=== PATIENT | male | born 1950 | race Caucasian/White ===

== ENCOUNTER 2021-12-11 13:00 | Outpatient (RCR) | payer MEDICARE, BC, SELFPAY | END 2021-12-16 23:59 | disposition home or self-care (01) | LOC: CR 13:00 | PROVIDERS: PCP Internal Medicine; Visit Provider Family Medicine | DX: Z51.89 Encounter for other specified aftercare (principal); Z95.5 Presence of coronary angioplasty implant and graft | CPT/HCPCS: S9472 ==

== ENCOUNTER 2021-12-13 12:03 | Emergency (ER) | payer MEDICARE, BC, SELFPAY ==
[2021-12-13 12:09] VITALS: BP 163/89; PULSE 62; RESP 14; TEMP 36.4; O2SAT 98
--- NOTE | 2021-12-13 13:21 | DI.CT_ITS ---
Exam(s) CT HEAD CERVICAL SPINE WO EXAM: CT HEAD CERVICAL SPINE WO CLINICAL HISTORY: fall, HI anc c3-4 pain. TECHNIQUE: Imaging Protocol: Axial computed tomography images with coronal and sagittal reformatted images were created and reviewed COMPARISON: No exams were available for comparison FINDINGS: BRAIN: There are no skull fractures nor fluid in the visualized paranasal sinuses. There is no evidence of intracranial hemorrhage, mass effect, or shift of midline structures. There are no extra-axial fluid collections. The ventricles are not enlarged or shifted and there is no blo od within the ventricular system nor within the basal cisterns. CERVICAL SPINE: There is no evidence of fracture. There is mild degenerative anterolisthesis of C3 upon C4. Facet joints at C2-3 level are fused developmentally. Other facet joints below this level exhibit mu ltilevel degenerative changes but no malalignment No significant osseous lesions evident. IMPRESSION: No acute intracranial findings on this noninfused CT scan of the brain. No evidence of cervical spine fracture, malalignment, nor acute compromise of the cervical spinal can al. RADIATION DOSE DELIVERED: 1,386.96mGy.cm Total DLP DATA REPOSITORY: All CT scans at this facility are submitted to the National Radiology Data Registry (NRDR) Dose Index Registry (DIR) with the [employer] ([employer]). RADIATION OPTIMIZATION: All CT scans at this facility use at least one of these dose optimization te chniques: automated exposure control; mA and/or kV adjustment per patient size (includes targeted exa ms where dose is matched to clinical indication); or iterative reconstruction.
[2021-12-13 13:37] VITALS: BP 161/84; PULSE 62; RESP 18; TEMP 36.8; O2SAT 95
--- NOTE | 2021-12-13 14:29 | ED.GENADUL_ITS ---
Discharge Plan Disposition Patient Disposition: HOME Condition: Stable Discharge Details Clinical Impression: Head injury Primary Care Provider: Danni Harmon ED Provider: Cate Moser Home Meds and New Rx's Prescriptions: Continued atorvastatin 40 mg tablet 40 mg PO DAILY 0RF donepezil 10 mg tablet 10 mg PO DAILY 0RF Label Comments: take 1 tablet by mouth every morning clopidogrel 75 mg tablet 75 mg PO DAILY 0RF acyclovir 400 mg tablet 400 mg PO DAILY 0RF Label Comments: Take 1 tablet(s) every day by oral route for 90 days. aspirin 81 mg Tablet 81 mg PO DAILY 0RF escitalopram oxalate 5 mg tablet 5 mg PO DAILY 0RF Label Comments: take 1 tablet by mouth once daily cholecalciferol (vitamin D3) [Vitamin D3] 50 mcg (2,000 unit) capsule 50 mcg PO DAILY 0RF Discharge Instructions Instructions: Head Injury (ED) Additional Instructions: You have a small abrasion on the back of your head, keep this clean and dry Your head CT does not show abnormality Please return immediately should you have vomiting, worsening headache, or with any new or progressive symptoms You may apply ice to the affected area Discharge Data Discharge Date/Time-TO BE ENTERED AT DEPARTURE: 12/13/21 15:06 Medical Decision Making This 71-year-old gentleman has a CTA head and cervical spine that did not show acute abnormality He is alert and oriented and of decisional capacity, ambulatory with steady gait His tetanus is reportedly up-to-date Given the threshold to return should you have new or worsening complaints and discharged home in stable condition with stable vital Medical Records Medical records reviewed: Yes I reviewed the patient's medical records. HPI General Date/Time Provider Initiated Documentation: 12/13/21 12:30 . HPI Narrative: This 71-year-old gentleman presents status post fall on ice, hitting his head just prior to arrival. Denies loss of consciousness. Does take a baby aspirin daily. Denies any chest pain, shortness of breath, dizziness. Has been ambulatory since the event occurred. Was concerned as he take Plavix daily. Denies any additional injuries. Denies any vision change. Denies any neck pain. Related Data Home Medications Medication Instructions Recorded Confirmed acyclovir 400 mg tablet 400 mg PO DAILY 12/13/21 12/13/21 aspirin 81 mg tablet 81 mg PO DAILY 12/13/21 12/13/21 atorvastatin 40 mg tablet 40 mg PO DAILY 12/13/21 12/13/21 cholecalciferol (vitamin D3) 50 50 mcg PO DAILY 12/13/21 12/13/21 mcg (2,000 unit) capsule (Vitamin D3) clopidogrel 75 mg tablet 75 mg PO DAILY 12/13/21 12/13/21 donepezil 10 mg tablet 10 mg PO DAILY 12/13/21 12/13/21 escitalopram oxalate 5 mg tablet 5 mg PO DAILY 12/13/21 12/13/21 Allergies Allergy/AdvReac Type Severity Reaction Status Date / Time bupropion [From Wellbutrin] AdvReac Other (See Unverified 12/13/21 12:14 Comment) Sulfa (Sulfonamide AdvReac Unverified 12/13/21 12:14 Antibiotics) General Stated Complaint: HeadInjury TRACY: 3 Review of Systems All systems reviewed & are unremarkable except as noted in HPI and below PFSH All Active Problems (Updated 12/13/21 @ 14:40 by MIKE Smith) Head injury (Acute) Social History Smoking/Tobacco Use Status: Never Smoking risk assessment performed?: Yes Alcohol Intake: current Alcohol Intake frequency: holidays/special occasions only Drug use: Never Substance use type: does not use Do you feel safe at home: Yes Exam Const General: cooperative, comfortable and no acute distress Orientation: alert and oriented x3 Limitations: altered mental status Other: GCS 15, ambulatory with steady gait HENMT Other: 1 inch hematoma with abrasion noted to occipital region Eyes Pupils: PERRL EOM: EOM intact bilaterally Neck Other: Mild paraspinal tenderness, no midline tenderness Chest Chest: normal inspection of the chest Resp Effort & Inspection: normal respiratory effort Cardio Rate: regular rate Rhythm: regular rhythm GI Inspection: normal to inspection Other: No abdominal tenderness Back/Spine/Pelvis Other: No thoracic or lumbar spine tenderness Skin Other: Abrasion with hematoma to occipital region Extrem Other: No visible sign of trauma Course Vital Signs Vital signs: Vital Signs Temperature 36.4 C L 12/13/21 12:09 Pulse 62 12/13/21 12:09 Respiratory Rate 14 12/13/21 12:09 Blood Pressure 163/89 H 12/13/21 12:09 Pulse Oximetry 98 12/13/21 12:09 Temperature 36.8 C 12/13/21 13:37 Temperature Source Skin 12/13/21 13:37 Pulse 62 12/13/21 13:37 Respiratory Rate 18 12/13/21 13:37 Respiratory Effort Non-Labored 12/13/21 12:18 Respiratory Depth Normal 12/13/21 12:18 Respiratory Pattern Normal 12/13/21 12:18 Blood Pressure 161/84 H 12/13/21 13:37 Blood Pressure Position Sitting 12/13/21 12:09 Pulse Oximetry 95 12/13/21 13:37 Oxygen Delivery Method Room Air 12/13/21 13:37 Oxygen Flow Rate 0 12/13/21 13:37 Pain Level 0 12/13/21 13:37 PAWSS Have you Been Recently Intoxicated or Drunk Within the Last 30 days?: No Have you Ever Experienced Previous Episodes of Alcohol Withdrawal?: No Have you ever Experienced Withdrawal Seizures?: No Have you ever Experienced Delirium Tremens(DT)s?: No Have you ever undergone Alcohol Rehabilitation Treatment (i.e, inpt ot outpatient treatment programs)?: No Have you ever Experienced Blackouts?: No Have you ever Combined Alcohol with other Downers within the last 90 days?: No Have you ever Combined Alcohol with any other Substance of Abuse during the last 90 days?: No Positive Blood Alcohol level on Presentation? [PCS.BAL]: No Evidence of Increased Autonomic Activity (i.e. HR>120, tremor, sweating, agitation, nausea)?: No Result: 0
[2021-12-13 14:59] VITALS: BP 147/78; PULSE 69; RESP 14; TEMP 36.6; O2SAT 94
== END 2021-12-13 15:06 | disposition home or self-care (01) ==
PROVIDERS: Emergency Provider Physician Assistant; PCP Internal Medicine
DX: S09.8XXA Other specified injuries of head, initial encounter (principal); W00.0XXA Fall on same level due to ice and snow, initial encounter
CPT/HCPCS: 99284; 70450; 72125; 99283

== ENCOUNTER 2022-01-15 13:00 | Outpatient (RCR) | payer MEDICARE, BC, SELFPAY | END 2022-01-16 23:59 | disposition home or self-care (01) | LOC: CR 13:00 | PROVIDERS: PCP Internal Medicine; Visit Provider Family Medicine | DX: Z51.89 Encounter for other specified aftercare (principal); Z95.5 Presence of coronary angioplasty implant and graft | CPT/HCPCS: S9472 ==

== ENCOUNTER 2022-02-10 13:00 | Outpatient (RCR) | payer MEDICARE, BC, SELFPAY | END 2022-02-15 23:59 | disposition home or self-care (01) | LOC: CR 13:00 | PROVIDERS: PCP Internal Medicine; Visit Provider Internal Medicine Cardiovascular Disease | DX: Z51.89 Encounter for other specified aftercare (principal); Z95.5 Presence of coronary angioplasty implant and graft | CPT/HCPCS: S9472 ==

== ENCOUNTER 2022-03-14 13:00 | Outpatient (RCR) | payer MEDICARE, BC, SELFPAY | END 2022-03-18 23:59 | disposition home or self-care (01) | LOC: CR 13:00 | PROVIDERS: PCP Internal Medicine; Visit Provider Internal Medicine Cardiovascular Disease | DX: Z51.89 Encounter for other specified aftercare (principal); Z95.5 Presence of coronary angioplasty implant and graft | CPT/HCPCS: S9472 ==

== ENCOUNTER 2022-03-24 13:00 | Outpatient (RCR) | payer MEDICARE, BC, SELFPAY | END 2022-04-17 23:59 | disposition home or self-care (01) | LOC: CR 13:00 | PROVIDERS: PCP Internal Medicine; Visit Provider Internal Medicine Cardiovascular Disease | DX: Z51.89 Encounter for other specified aftercare (principal); Z95.5 Presence of coronary angioplasty implant and graft | CPT/HCPCS: S9472 ==

== ENCOUNTER 2022-05-15 13:00 | Outpatient (RCR) | payer SELFPAY ==
[2022-04-24 15:31] VITALS: BP 109/68; PULSE 90
[2022-04-29 12:56] VITALS: BP 107/73; PULSE 78
[2022-05-01 14:30] VITALS: BP 119/74; PULSE 72
[2022-05-13 13:47] VITALS: BP 118/67; PULSE 87
[2022-05-15 12:54] VITALS: BP 129/77; PULSE 79; O2SAT 94
== END 2022-05-18 23:59 | disposition home or self-care (01) ==
LOC: CR 13:00
PROVIDERS: PCP Internal Medicine; Visit Provider Internal Medicine Cardiovascular Disease
DX: R69 Illness, unspecified (principal)

== ENCOUNTER 2022-06-12 12:57 | Outpatient (RCR) | payer SELFPAY ==
[2022-05-19 00:03] VITALS: BP 129/77; PULSE 79
[2022-05-20 13:29] VITALS: BP 111/74; PULSE 79
[2022-05-27 13:59] VITALS: BP 112/70; PULSE 82
[2022-05-29 13:13] VITALS: BP 112/70; PULSE 87
[2022-06-03 13:04] VITALS: BP 136/90; PULSE 85
[2022-06-10 12:56] VITALS: BP 118/71; PULSE 74
[2022-06-12 12:59] VITALS: BP 127/73; PULSE 74
== END 2022-06-18 23:59 | disposition home or self-care (01) ==
LOC: CR 12:57
PROVIDERS: PCP Internal Medicine; Visit Provider Internal Medicine Cardiovascular Disease
DX: R69 Illness, unspecified (principal)

== ENCOUNTER 2022-07-17 12:56 | Outpatient (RCR) | payer SELFPAY ==
[2022-06-19 00:14] VITALS: BP 127/73; PULSE 74
[2022-06-26 13:03] VITALS: BP 120/77; PULSE 80; O2SAT 93
[2022-07-03 12:57] VITALS: BP 146/74; PULSE 78
[2022-07-08 13:00] VITALS: BP 122/72; PULSE 70
[2022-07-10 12:57] VITALS: BP 134/81; PULSE 63
[2022-07-17 12:57] VITALS: BP 138/66; PULSE 67
== END 2022-07-18 23:59 | disposition home or self-care (01) ==
LOC: CR 12:56
PROVIDERS: PCP Internal Medicine; Visit Provider Internal Medicine Cardiovascular Disease
DX: R69 Illness, unspecified (principal)

== ENCOUNTER 2022-09-16 13:02 | Outpatient (RCR) | payer SELFPAY ==
[2022-07-19 00:21] VITALS: BP 138/66; PULSE 67
[2022-08-19 13:33] VITALS: BP 119/74; PULSE 73
[2022-08-28 12:57] VITALS: BP 119/77; PULSE 83
[2022-09-02 13:06] VITALS: BP 114/73; PULSE 78
[2022-09-09 13:14] VITALS: BP 136/75; PULSE 75
[2022-09-16 13:11] VITALS: BP 128/76; PULSE 66
== END 2022-09-17 23:59 | disposition home or self-care (01) ==
LOC: CR 13:02
PROVIDERS: PCP Internal Medicine; Visit Provider Internal Medicine Cardiovascular Disease
DX: R69 Illness, unspecified (principal)

== ENCOUNTER 2022-10-14 13:03 | Outpatient (RCR) | payer SELFPAY ==
[2022-09-18 00:13] VITALS: BP 128/76; PULSE 66
[2022-09-30 13:01] VITALS: BP 133/74; PULSE 59
[2022-10-02 12:53] VITALS: BP 121/67; PULSE 70
[2022-10-07 13:11] VITALS: BP 132/76; PULSE 72
[2022-10-14 13:03] VITALS: BP 131/82; PULSE 64
== END 2022-10-18 23:59 | disposition home or self-care (01) ==
LOC: CR 13:03
PROVIDERS: PCP Internal Medicine; Visit Provider Internal Medicine Cardiovascular Disease
DX: R69 Illness, unspecified (principal)

== ENCOUNTER 2022-11-13 13:37 | Outpatient (RCR) | payer SELFPAY ==
[2022-10-19 00:07] VITALS: BP 131/82; PULSE 64
[2022-10-21 14:58] VITALS: BP 134/76; PULSE 61
[2022-10-23 13:00] VITALS: BP 123/73; PULSE 66
[2022-10-30 14:10] VITALS: BP 141/80; PULSE 64
[2022-11-04 13:00] VITALS: BP 127/75; PULSE 69
[2022-11-06 12:56] VITALS: BP 126/70; PULSE 72
[2022-11-13 13:00] VITALS: BP 125/69; PULSE 72
== END 2022-11-18 23:59 | disposition home or self-care (01) ==
LOC: CR 13:37
PROVIDERS: PCP Internal Medicine; Visit Provider Internal Medicine Cardiovascular Disease
DX: R69 Illness, unspecified (principal)

== ENCOUNTER 2023-01-15 13:00 | Outpatient (RCR) | payer SELFPAY ==
[2022-12-17 00:10] VITALS: BP 115/70; PULSE 67
[2022-12-18 13:16] VITALS: BP 125/71; PULSE 80
[2022-12-23 13:08] VITALS: BP 124/69; PULSE 71
[2022-12-25 13:11] VITALS: BP 135/75; PULSE 68
[2022-12-30 13:08] VITALS: BP 122/74; PULSE 76
[2023-01-01 12:57] VITALS: BP 129/75; PULSE 68
[2023-01-06 13:03] VITALS: BP 134/73; PULSE 63
[2023-01-08 13:07] VITALS: BP 127/73; PULSE 64
[2023-01-15 13:08] VITALS: BP 123/74; PULSE 62
== END 2023-01-16 23:59 | disposition home or self-care (01) ==
LOC: CR 13:00
PROVIDERS: PCP Internal Medicine; Visit Provider Internal Medicine Cardiovascular Disease

== ENCOUNTER 2023-02-12 13:13 | Outpatient (RCR) | payer SELFPAY ==
[2023-01-17 00:06] VITALS: BP 123/74; PULSE 62
[2023-01-22 13:11] VITALS: BP 120/67; PULSE 74
[2023-01-29 13:01] VITALS: BP 125/71; PULSE 72
[2023-02-03 13:07] VITALS: BP 117/71; PULSE 68
[2023-02-12 13:19] VITALS: BP 133/69; PULSE 70
== END 2023-02-15 23:59 | disposition home or self-care (01) ==
LOC: CR 13:13
PROVIDERS: PCP Internal Medicine; Visit Provider Internal Medicine Cardiovascular Disease
DX: R69 Illness, unspecified (principal)

== ENCOUNTER 2023-03-05 13:07 | Outpatient (RCR) | payer SELFPAY ==
[2023-02-16 00:15] VITALS: BP 133/69; PULSE 70
[2023-02-17 13:23] VITALS: BP 118/79; PULSE 61
[2023-02-24 13:11] VITALS: BP 119/64; PULSE 72
[2023-03-03 13:54] VITALS: BP 119/73; PULSE 72
[2023-03-05 13:09] VITALS: BP 117/73; PULSE 69
== END 2023-03-18 23:59 | disposition home or self-care (01) ==
LOC: CR 13:07
PROVIDERS: PCP Internal Medicine; Visit Provider Internal Medicine Cardiovascular Disease

== ENCOUNTER 2023-04-16 13:07 | Outpatient (RCR) | payer SELFPAY ==
[2023-03-19 00:16] VITALS: BP 117/73; PULSE 69
[2023-04-07 13:02] VITALS: BP 124/80; PULSE 78
[2023-04-09 13:01] VITALS: BP 113/67; PULSE 84
[2023-04-16 13:09] VITALS: BP 117/72; PULSE 81
== END 2023-04-17 23:59 | disposition home or self-care (01) ==
LOC: CR 13:07
PROVIDERS: PCP Internal Medicine; Visit Provider Internal Medicine Cardiovascular Disease
DX: R69 Illness, unspecified (principal)

== ENCOUNTER 2023-05-12 13:01 | Outpatient (RCR) | payer SELFPAY ==
[2023-04-18 00:07] VITALS: BP 117/72; PULSE 81
[2023-05-07 13:26] VITALS: BP 121/76; PULSE 68
[2023-05-12 13:16] VITALS: BP 117/76; PULSE 80
== END 2023-05-18 23:59 | disposition home or self-care (01) ==
LOC: CR 13:01
PROVIDERS: PCP Internal Medicine; Visit Provider Internal Medicine Cardiovascular Disease
DX: R69 Illness, unspecified (principal)

== ENCOUNTER 2023-06-18 13:06 | Outpatient (RCR) | payer SELFPAY ==
[2023-05-19 00:04] VITALS: BP 117/76; PULSE 80
[2023-05-19 13:27] VITALS: BP 137/79; PULSE 65
[2023-05-28 13:19] VITALS: BP 114/66; PULSE 76
[2023-06-02 13:44] VITALS: BP 143/59; PULSE 76
[2023-06-16 13:19] VITALS: BP 134/64; PULSE 70
[2023-06-18 13:14] VITALS: BP 110/72; PULSE 70
== END 2023-06-18 23:59 | disposition home or self-care (01) ==
LOC: CR 13:06
PROVIDERS: PCP Internal Medicine; Visit Provider Internal Medicine Cardiovascular Disease
DX: R69 Illness, unspecified (principal)

== ENCOUNTER 2023-07-14 13:21 | Outpatient (RCR) | payer SELFPAY ==
[2023-06-19 00:14] VITALS: BP 110/72; PULSE 70
[2023-07-02 13:11] VITALS: BP 128/77; PULSE 65
[2023-07-07 13:15] VITALS: BP 140/75; PULSE 71
[2023-07-09 13:37] VITALS: BP 142/74; PULSE 71
[2023-07-14 13:39] VITALS: BP 104/66; PULSE 73
== END 2023-07-18 23:59 | disposition home or self-care (01) ==
LOC: CR 13:21
PROVIDERS: PCP Internal Medicine; Visit Provider Internal Medicine Cardiovascular Disease
DX: R69 Illness, unspecified (principal)

== ENCOUNTER 2023-09-08 12:55 | Outpatient (RCR) | payer SELFPAY ==
[2023-08-27 12:58] VITALS: BP 131/75; PULSE 75
[2023-09-01 12:57] VITALS: BP 132/79; PULSE 70
[2023-09-08 13:15] VITALS: BP 140/78; PULSE 66
== END 2023-09-17 23:59 | disposition home or self-care (01) ==
LOC: CR 12:55
PROVIDERS: PCP Internal Medicine; Visit Provider Internal Medicine Cardiovascular Disease
DX: R69 Illness, unspecified (principal)

== ENCOUNTER 2023-10-08 12:48 | Outpatient (RCR) | payer SELFPAY ==
[2023-09-18 00:13] VITALS: BP 140/78; PULSE 66
[2023-09-24 15:43] VITALS: BP 132/74; PULSE 73
[2023-09-29 14:47] VITALS: BP 141/79; PULSE 86
[2023-10-06 13:07] VITALS: BP 119/71; PULSE 79
[2023-10-08 12:56] VITALS: BP 112/68; PULSE 67
== END 2023-10-18 23:59 | disposition home or self-care (01) ==
LOC: CR 12:48
PROVIDERS: PCP Internal Medicine; Visit Provider Internal Medicine Cardiovascular Disease
DX: R69 Illness, unspecified (principal)

== ENCOUNTER 2023-11-12 13:14 | Outpatient (RCR) | payer SELFPAY ==
[2023-10-19 00:06] VITALS: BP 140/78; PULSE 66
[2023-10-22 12:58] VITALS: BP 115/65; PULSE 74
[2023-10-27 14:20] VITALS: BP 128/78; PULSE 72
[2023-10-29 13:11] VITALS: BP 127/72; PULSE 74
[2023-11-03 13:12] VITALS: BP 118/69; PULSE 74
[2023-11-10 13:06] VITALS: BP 121/73; PULSE 74
[2023-11-12 13:18] VITALS: BP 131/71; PULSE 78
== END 2023-11-18 23:59 | disposition home or self-care (01) ==
LOC: CR 13:14
PROVIDERS: PCP Internal Medicine; Visit Provider Internal Medicine Interventional Cardiology
DX: R69 Illness, unspecified (principal)

== ENCOUNTER 2023-12-03 13:57 | Outpatient (RCR) | payer SELFPAY ==
[2023-11-19 00:05] VITALS: BP 140/78; PULSE 66
[2023-11-24 13:56] VITALS: BP 116/70; PULSE 72
[2023-11-26 13:27] VITALS: BP 125/70; PULSE 74
[2023-12-01 13:36] VITALS: BP 117/73; PULSE 74
[2023-12-03 15:25] VITALS: BP 115/70; PULSE 81
== END 2023-12-17 23:59 | disposition home or self-care (01) ==
LOC: CR 13:57
PROVIDERS: PCP Internal Medicine; Visit Provider Internal Medicine Cardiovascular Disease
DX: R69 Illness, unspecified (principal)

== ENCOUNTER 2024-02-16 13:23 | Outpatient (RCR) | payer SELFPAY ==
[2024-01-19 14:12] VITALS: BP 111/74; PULSE 82
[2024-01-26 13:21] VITALS: BP 124/72; PULSE 81
[2024-01-28 12:53] VITALS: BP 121/73; PULSE 77
[2024-02-02 13:48] VITALS: BP 101/63; PULSE 84
[2024-02-04 12:53] VITALS: BP 122/75; PULSE 87
[2024-02-09 13:08] VITALS: BP 111/63; PULSE 83
[2024-02-11 13:10] VITALS: BP 116/69; PULSE 70
[2024-02-16 13:46] VITALS: BP 123/74; PULSE 78
== END 2024-02-16 23:59 | disposition home or self-care (01) ==
LOC: CR 13:23
PROVIDERS: PCP Internal Medicine; Visit Provider Internal Medicine Cardiovascular Disease
DX: R69 Illness, unspecified (principal)

== ENCOUNTER 2024-03-17 13:13 | Outpatient (RCR) | payer SELFPAY ==
[2024-02-17 00:14] VITALS: BP 123/74; PULSE 78
[2024-02-18 13:08] VITALS: BP 112/61; PULSE 76; O2SAT 93
[2024-02-25 14:34] VITALS: BP 124/72; PULSE 74
[2024-03-01 13:09] VITALS: BP 114/72; PULSE 81
[2024-03-03 13:34] VITALS: BP 111/67; PULSE 80
[2024-03-10 13:11] VITALS: BP 109/71; PULSE 76
[2024-03-10 14:35] VITALS: BP 109/71; PULSE 76
[2024-03-17 13:16] VITALS: BP 118/70; PULSE 77
== END 2024-03-18 23:59 | disposition home or self-care (01) ==
LOC: CR 13:13
PROVIDERS: PCP Internal Medicine; Visit Provider Internal Medicine Cardiovascular Disease
DX: R69 Illness, unspecified (principal)

== ENCOUNTER 2024-04-12 13:33 | Outpatient (RCR) | payer SELFPAY ==
[2024-03-22 13:06] VITALS: BP 112/67; PULSE 76
[2024-03-24 14:22] VITALS: BP 109/66; PULSE 78
[2024-03-29 13:20] VITALS: BP 118/68; PULSE 74
--- OUTSIDE RECORDS SUMMARY | 2024-04-12 13:34 | XMS_ITS | Continuity of Care Document ---
Author Name Unknown Organization [facility] Address [address] [place] [address] Care Team Providers Care Expanded Function Dental Assistant Name Role Phone BOZENA ELISE Primary Care Physician Encounter LTTL_ID FIN NBR [id number] Date(s): 04/03/24 - 04/03/24 [facility] [address] [place], [place] [address] Encounter Diagnosis Gastroenteritis(Discharge Diagnosis) - 04/03/24 Discharge Disposition: Home or Self Care Attending Physician: Veto Rosenberg MD Admitting Physician: Veto Rosenberg MD Allergies, Adverse Reactions, Alerts Substance Reaction Severity Status sulfa drugs 1 Unknown Active 1Everything smells like sulfer Functional Status 04/03/24 Family Member Travel History No recent t ravel Recent Travel History No recent travel Other exposure to Infectious Disease Non e Medications ondansetron 4 mg oral tablet, disintegrating 4 mg = 1 tab, Oral, TID, # 10 tab, 0 Refill(s), 04/09/24 6:47:00 PM CDT, Pharmacy: [facility] #[id number], 167.64, cm, 04/03/24 15:48:00 EDT, Height, 81.65, kg, 04/03/24 15:52:00 EDT, Weight Dosing Start Date: 04/03/24 Stop Date: 04/09/24 Status: Ordered Mental Status 04/03/24 Eye Opening Response Rachel Spontaneous ly Best Verbal Response Lyburn Oriented Best Motor Response Rachel Obeys comman ds Lyburn Coma Score 15 Results Laboratory List Name Date Troponin-I High Sensitivity 04/03/24 Urinalysis with Micro if Indicated and C ulture if Indicated 04/03/24 Respiratory Panel 2.1 ([employer]) 04/03/24 .Morphology (LTTL) 04/03/24 CBC w/ Diff 04/03/24 Comprehensive Metabolic Panel (CMP) 04/03 Lipase Level 04/03/24 Sedimentation Rate (ESR) 04/03/24 Troponin-I High Sensitivity 04/03/24 Automated Diff 04/03/24 Most recent to oldest [Reference Range]: 1 2 WBC [4.8-10.8 K/mcL] 4.1 K/mcL *LOW* (04/03/24 4:11 PM) RBC [4.70-6.10 Million/mcL] 5.02 Million /mcL (04/03/24 4:11 PM) Neutro Auto [42.2-75.2 %] 73.8 % (04/03/24 4:11 PM) Lymph Auto [20.5-51.1 %] 15.5 % *LOW* (04/03/24 4:11 PM) [place] Auto [1.7-9.3 %] 9.7 % *HI* (04/03/24 4:11 PM) Basophil Auto [0.0-0.8 %] 0.9 % *HI* (04/03/24 4:11 PM) BUN [7-25 mg/dL] 24 mg/dL (04/03/24 4:11 PM) UA Color [Yellow] Yellow (04/03/24 5:45 PM) Glucose Level [70-109 mg/dL] 139 mg/dL *HI* (04/03/24 4:11 PM) Potassium Level [3.5-5.1 mmol/L] 4.1 mmo l/L 1 (04/03/24 4:11 PM) Baso Absolute [0.0-0.2 K/mcL] 0.0 K/mcL (04/03/24 4:11 PM) MCV [80.0-94.0 fL] 90.6 fL (04/03/24 4:11 PM) UA Urobilinogen [0.2] 0.2 (04/03/24 5:45 PM) RBC Morph [Normal] Normal (04/03/24 4:11 PM) UA Bili [Negative] Small *ABN* (04/03/24 5:45 PM) UA Ketones [Negative] 15 *ABN* (04/03/24 5:45 PM) AST [13-39 IntlUnit/L] 76 IntlUnit/L *HI* (04/03/24 4:11 PM) ALT [7-52 IntlUnit/L] 70 IntlUnit/L 2 *HI* (04/03/24 4:11 PM) MCHC [32.0-37.0 g/dL] 35.6 g/dL (04/03/24 4:11 PM) Osmolality [275-295 mOsm/kg] 265 mOsm/kg *LOW* (04/03/24 4:11 PM) Sodium Level [136-145 mmol/L] 129 mmol/L *LOW* (04/03/24 4:11 PM) UA Leuk Est [Negative] Negative (04/03/24 5:45 PM) Lymph Absolute [1.2-3.4 K/mcL] 0.6 K/mcL *LOW* (04/03/24 4:11 PM) UA Nitrite [Negative] Negative (04/03/24 5:45 PM) UA Glucose [Negative] Negative (04/03/24 5:45 PM) Hct [42.0-52.0 %] 45.5 % (04/03/24 4:11 PM) Lipase Level [11-82 unit/L] 20 unit/L 3 (04/03/24 4:11 PM) Calcium Level [8.6-10.3 mg/dL] 8.9 mg/dL (04/03/24 4:11 PM) [place] Absolute [0.1-0.6 K/mcL] 0.4 K/mcL (04/03/24 4:11 PM) Albumin Level [3.5-5.7 g/dL] 4.0 g/dL (04/03/24 4:11 PM) Protein Total [6.4-8.9 g/dL] 7.2 g/dL (04/03/24 4:11 PM) UA Protein [Negative] 30 *ABN* (04/03/24 5:45 PM) MCH [27.0-31.0 pg] 32.3 pg *HI* (04/03/24 4:11 PM) Neutro Absolute [1.4-6.5 K/mcL] 3.1 K/mc L (04/03/24 4:11 PM) Bilirubin Total [0.3-1.0 mg/dL] 1.1 mg/d L *HI* (04/03/24 4:11 PM) Hgb [14.0-18.0 g/dL] 16.2 g/dL (04/03/24 4:11 PM) Alk Phos [34-104 IntlUnit/L] 48 IntlUnit /L (04/03/24 4:11 PM) UA Blood [Negative] Negative (04/03/24 5:45 PM) MPV [7.4-10.4 fL] 7.4 fL (04/03/24 4:11 PM) UA Spec Grav [1.001-1.030] >=1.030 *NA* (04/03/24 5:45 PM) Platelets [130-400 K/mcL] 82 K/mcL *LOW* (04/03/24 4:11 PM) CO2 [21-31 mmol/L] 20 mmol/L *LOW* (04/03/24 4:11 PM) Eos Absolute [0.0-0.2 K/mcL] 0.0 K/mcL (04/03/24 4:11 PM) UA pH [5.00-9.00] 5.50 (04/03/24 5:45 PM) UA Appear [Clear] Clear (04/03/24 5:45 PM) Chloride Level [98-107 mmol/L] 96 mmol/L *LOW* (04/03/24 4:11 PM) RDW-CV [11.5-14.5 %] 13.8 % (04/03/24 4:11 PM) Adenovirus RespP-BFire [Not Detected] No t Detected (04/03/24 4:29 PM) Bordetella parapertussis Res pP-BFire [Not Detected] Not Detected (04/03/24 4:29 PM) Bordetella pertussis RespP-B Fire [Not Detected] Not Detected (04/03/24 4:29 PM) Chlamydophila pneumoniae Res pP-BFire [Not Detected] Not Detected (04/03/24 4:29 PM) Coronavirus 229E (Not COVID- 19) RP-BFire [Not Detected] Not Detected (04/03/24 4:29 PM) Coronavirus HKU1 (Not COVID- 19) RP-BFire [Not Detected] Not Detected (04/03/24 4:29 PM) Coronavirus NL63 (Not COVID- 19) RP-BFire [Not Detected] Not Detected (04/03/24 4:29 PM) Coronavirus OC43 (Not COVID- 19) RP-BFire [Not Detected] Not Detected (04/03/24 4:29 PM) Human Metapneumonovirus Resp P-BFire [Not Detected] Not Detected (04/03/24 4:29 PM) Human Rhinovirus/Enterovirus RespP-BFir [Not Detected] Not Detected (04/03/24 4:29 PM) Influenza A RespP-BFire [Not Detected] N ot Detected (04/03/24 4:29 PM) Influenza B RespP-BFire [Not Detected] N ot Detected (04/03/24 4:29 PM) Mycomplasma pneumoniae RespP -BFire [Not Detected] Not Detected (04/03/24 4:29 PM) Parainfluenza Virus 1 RespP- BFire [Not Detected] Not Detected (04/03/24 4:29 PM) Parainfluenza Virus 2 RespP- BFire [Not Detected] Not Detected (04/03/24 4:29 PM) Parainfluenza Virus 3 RespP- BFire [Not Detected] Not Detected (04/03/24 4:29 PM) Parainfluenza Virus 4 RespP- BFire [Not Detected] Not Detected (04/03/24 4:29 PM) Respiratory Syncytial Virus RespP-BFire [Not Detected] Not Detected (04/03/24 4:29 PM) A/G Ratio [1.0-2.5 g/dL] 1.3 g/dL (04/03/24 4:11 PM) BUN/Creat Ratio [8.0-20.0] 17.1 (04/03/24 4:11 PM) Globulin [2.3-3.5 g/dL] 3.2 g/dL (04/03/24 4:11 PM) Slide Review Morph Only (04/03/24 4:11 PM) Urine Srce Clean Catch (04/03/24 5:45 PM) Plt Large Few *ABN* (04/03/24 4:11 PM) Creatinine Level [0.70-1.30 mg/dL] 1.40 mg/dL *HI* (04/03/24 4:11 PM) SARS-CoV-2 (COVID-19) RP-BFire [Not Dete cted] Not Detected (04/03/24 4:29 PM) Plt Estimation Decreased *ABN* (04/03/24 4:11 PM) Employed in healthcare? Unknown *NA* (04/03/24 4:29 PM) Symptomatic as defined by CDC? Unknown *NA* (04/03/24 4:29 PM) Hospitalized due to COVID-19? Unknown *NA* (04/03/24 4:29 PM) In ICU? Unknown *NA* (04/03/24 4:29 PM) Group care resident? Unknown *NA* (04/03/24 4:29 PM) status? Unknown *NA* (04/03/24 4:29 PM) Troponin-I HS [<=20 ng/L] 10 ng/L 4 (04/03/24 6:22 PM) 10 ng/L 5 (04/03/24 4:11 PM) Anion Gap [3.0-12.0] 13.0 *HI* (04/03/24 4:11 PM) Eos, Auto [0.00-3.00 %] 0.10 % (04/03/24 4:11 PM) eGFR CKD-EPI [>=60 mL/min/1.73 m2] 53 mL /min/1.73 m2 *LOW* (04/03/24 4:11 PM) ESR, Westergren [0-15 mm/hr] 30 mm/hr *HI* (04/03/24 4:11 PM) 1Result Comment: SLIGHT HEMOLYSIS 2Result Comment: SLIGHT HEMOLYSIS 3Interpretive Data: H-zoukcj-e-benzoquinone imine (meabolite of Acetaminophen) will generate erroneously low lipase results in samples for patients that have taken toxic doses of acetaminophen. 4Interpretive Data: The Miller ACCESS high-sensitivity Troponin I (hsTNI) 99 percentile cutoffs forhealthy adults are 12 ng/L or less for females and 20 ng/L or less for males. SERIAL MEASUREMENT IS HIGHLY RECOMMENDED for the diagnosis or exclusion of Acute Coronary Syndromes(ACS). Please refer to the High-Sensitivity Troponin Algorithm 2022 for guidance. As with all markers of cardiac injury, elevations of hsTnI do not in and of themselves indicate thepresence of an ischemic mechanism. Many other disease states can be associated with elevations via mechanisms different from those that cause injury in patients with ACS. These include trauma (contusion, ablation, pacing); congestive heart failure; pulmonary embolism; kidney failure; and myocarditis. Clinical judgement is necessary to distinguish patients who have ischemic heart disease from those who do not. 5Interpretive Data: The Miller ACCESS high-sensitivity Troponin I (hsTNI) 99 percentile cutoffs forhealthy adults are 12 ng/L or less for females and 20 ng/L or less for males. SERIAL MEASUREMENT IS HIGHLY RECOMMENDED for the diagnosis or exclusion of Acute Coronary Syndromes(ACS). Please refer to the High-Sensitivity Troponin Algorithm 2022 for guidance. As with all markers of cardiac injury, elevations of hsTnI do not in and of themselves indicate thepresence of an ischemic mechanism. Many other disease states can be associated with elevations via mechanisms different from those that cause injury in patients with ACS. These include trauma (contusion, ablation, pacing); congestive heart failure; pulmonary embolism; kidney failure; and myocarditis. Clinical judgement is necessary to distinguish patients who have ischemic heart disease from those who do not. Radiology Reports * Exam Date Time Procedure Performing Provider Status 04/03/24 4:38 PM XR Chest 1 View Pham Madison; Magdy (V erified) Notes: (XR Chest 1 View) Reason For Exam: cough XR Chest 1 View PROCEDURE INFORMATION: Exam: XR Chest Exam date and time: 04/03/2024 4:31 PM Age: 73 years old Clinical indication: Cough TECHNIQUE: Imaging protocol: Radiologic exam of the chest. Views: 1 view. COMPARISON: No relevant prior studies available. FINDINGS: Lungs: Moderate interstitial prominence along the lung bronchovascular distribution could represent chronic bronchial inflammation. Moderate hyperexpansion suggests COPD or emphysema. No dense consolidation. Pleural spaces: Unremarkable. No pleural effusion. No pneumothorax. Heart/Mediastinum: Unremarkable. No cardiomegaly. Bones/joints: Unremarkable. IMPRESSION: Possible chronic bronchial inflammation. COPD or emphysema No consolidating pneumonia THIS DOCUMENT HAS BEEN ELECTRONICALLY SIGNED BY AUSTYN LOVE MD on 04/03/2024 06:04 PM Final Signed by: Austyn Love MD Signed (Electronic Signature): 04/03/2024 6:04 pm Vital Signs Most recent to oldest [Reference Range]: 1 2 3 Temperature Temporal Artery [36-38 Deg C] 36.9 Deg C (04/03/24 3:48 PM) Peripheral Pulse Rate [60-100 bpm] 70 bpm (04/03/24 8:00 PM) 73 bpm (04/03/24 6:45 PM) 76 bpm (04/03/24 6:30 PM) Respiratory Rate [12-24 br/min] 18 br/min (04/03/24 3:48 PM) Blood Pressure [90-140/60-90 mmHg] 113/51mmHg (04/03/24 8:00 PM) 112/72mmHg (04/03/24 5:45 PM) 112/72mmHg (04/03/24 5:30 PM) Mean Arterial Pressure, Cuff [65-140 mmHg] 72 mmHg (04/03/24 8:00 PM) 85 mmHg (04/03/24 5:45 PM) 85 mmHg (04/03/24 5:30 PM) Mean Arterial Pressure Cuff 84 mmHg (04/03/24 5:45 PM) 84 mmHg (04/03/24 5:30 PM) 86 mmHg (04/03/24 5:15 PM) Weight 81.65 kg (04/03/24 3:48 PM) Weight Dosing 81.650 kg (04/03/24 3:48 PM) Height 167.64 cm (04/03/24 3:48 PM) Body Mass Index 29.05 kg/m2 (04/03/24 3:48 PM) Social History Social History Type Response Tobacco Never tobacco user T obacco Use:. Sex Hospital Discharge Instructions Patient Education 04/03/2024 18:47:53 Nausea, Adult Nausea, Adult Nausea is the feeling of having an upset stomach or that you are about to vomit. Nausea on its own is not usually a serious concern, but it may be an early sign of a more serious medical problem. As nausea gets worse, it can lead to vomiting. If vomiting develops, or if you are not able to drink enough fluids, you are at risk of becoming dehydrated. Dehydration can make you tired and thirsty, cause you to have a dry mouth, and decrease how often you urinate. Older adults and people with other diseases or a weak disease-fighting system (immune system) are at higher risk for dehydration. The main goals of treating your nausea are: ??? To relieve your nausea. ??? To limit repeated nausea episodes. ??? To prevent vomiting and dehydration. Follow these instructions at home: Watch your symptoms for any changes. Tell your health care provider about them. Eating and drinking ??? Take an oral rehydration solution (ORS). This is a drink that is sold at pharmacies and retail stores. ??? Drink clear fluids slowly and in small amounts as you are able. Clear fluids include water, icechips, low-calorie sports drinks, and fruit juice that has water added (diluted fruit juice). ??? Eat bland, ojsg-dj-mfugyx foods in small amounts as you are able. These foods include bananas, applesauce, rice, lean meats, toast, and crackers. ??? Avoid drinking fluids that contain a lot of sugar or caffeine, such as energy drinks, sports drinks, and soda. ??? Avoid alcohol. ??? Avoid spicy or fatty foods. General instructions ??? Take lxyl-jpl-gypxzng and prescription medicines only as told by your health care provider. ??? Rest at home while you recover. ??? Drink enough fluid to keep your urine pale yellow. ??? Breathe slowly and deeply when you feel nauseous. ??? Avoid smelling things that have strong odors. ??? Wash your hands often using soap and water for at least 20 seconds. If soap and water are not available, use hand mineral engineer. ??? Make sure that everyone in your household washes their hands well and often. ??? Keep all follow-up visits. This is important. Contact a health care provider if: ??? Your nausea gets worse. ??? Your nausea does not go away after two days. ??? You vomit multiple times. ??? You cannot drink fluids without vomiting. ??? You have any of the following: ??? New symptoms. ??? A fever. ??? A headache. ??? Muscle cramps. ??? A rash. ??? Pain while urinating. ??? You feel light-headed or dizzy. Get help right away if: ??? You have pain in your chest, neck, arm, or jaw. ??? You feel extremely weak or you faint. ??? You have vomit that is bright red or looks like coffee grounds. ??? You have bloody or black stools (feces) or stools that look like tar. ??? You have a severe headache, a stiff neck, or both. ??? You have severe pain, cramping, or bloating in your abdomen. ??? You have difficulty breathing or are breathing very quickly. ??? Your heart is beating very quickly. ??? Your skin feels cold and clammy. ??? You feel confused. ??? You have signs of dehydration, such as: ??? Dark urine, very little urine, or no urine. ??? Cracked lips. ??? Dry mouth. ??? Sunken eyes. ??? Sleepiness. ??? Weakness. These symptoms may be an emergency. Get help right away. Call 911. ??? Do not wait to see if the symptoms will go away. ??? Do not drive yourself to the hospital. Summary ??? Nausea is the feeling that you have an upset stomach or that you are about to vomit. Nausea on its own is not usually a serious concern, but it may be an early sign of a more serious medical problem. ??? If vomiting develops, or if you are not able to drink enough fluids, you are at risk of becoming dehydrated. ??? Follow recommendations for eating and drinking and take xhae-bog-xkcmltz and prescription medicines only as told by your health care provider. ??? Contact a health care provider right away if your symptoms worsen or you have new symptoms. ??? Keep all follow-up visits. This is important. This information is not intended to replace advice given to you by your health care provider. Make sure you discuss any questions you have with your health care provider. Document Revised: 04/11/2022 Document Reviewed: 04/11/2022 [employer] Patient Education ?? 2022 [employer] Follow Up Care 04/03/2024 15:33:18 With:Follow-up with your primary care Address: When:1 week Comments:Follow-up with your primary care as needed, they will be able to reevaluate if necessaryReturn to ED if concerns Emergency department Discharge instructions * MIKE Gallego: PERFORM Event Display: ED Discharge Information Authored Date: [id number] MIREYA GILL :1950 Age:73 years Sex:Male Visit Date:04/03/2024 Primary Care Physician: BOZENA ELISE Discharge Instructions We would like to thank you for allowing us to assist you with your healthcare needs. The following includes patient education materials and information regarding your injury/illness. Diagnosis from Today's Visit Gastroenteritis Discharge Vitals Temperature??(Temporal Artery) 98.4 ??F (36.9 ??C) Heart Rate??(Peripheral) 73 Respiratory Rate?? 18 Blood Pressure?? 112/72?? SpO2?? 96% Height?? 66.00 in (167.64 cm) Weight?? 180.04 lb (81.65 kg) BMI?? 29.05 Allergies sulfa drugs What to Do Next Instructions from Your Care Team We have??given you antinausea medications fluids and have found no acute findings on your laboratory evaluation Your viral panel was negative Will be sent home with several??ondansetron tablets to take as needed and a prescription will be sent to your pharmacy Follow-up in the emergency department for any new or worsening conditions You Need to Schedule the Following Appointments Follow Up with??Follow-up with your primary care When:??Within 1 week Why: Follow-up with your primary care as needed, they will be able to reevaluate if necessary Return to ED if concerns You were treated today on an emergency basis; it may be eastman to contact your primary care provider to notify them of your visit today. You may have been referred to your regular doctor or a specialist, please follow up as instructed. If your condition worsens or you can't get in to see the doctor, contact the Emergency Department. Medications What How Much When Instructions Next Dose New ondansetron (ondansetron 4 mg oral tablet, disintegrating) 1 tab Oral (given by mouth) 3 times a day Pickup at [id number] Pharmacy Information [id number]: [address], [place] [phone] Education Materials Nausea, Adult Nausea is the feeling of having an upset stomach or that you are about to vomit. Nausea on its own is not usually a serious concern, but it may be an early sign of a more serious medical problem. As nausea gets worse, it can lead to vomiting. If vomiting develops, or if you are not able to drink enough fluids, you are at risk of becoming dehydrated. Dehydration can make you tired and thirsty, cause you to have a dry mouth, and decrease how often you urinate. Older adults and people with other diseases or a weak disease-fighting system (immune system) are at higher risk for dehydration. The main goals of treating your nausea are: ? To relieve your nausea. ? To limit repeated nausea episodes. ? To prevent vomiting and dehydration. Follow these instructions at home: Watch your symptoms for any changes. Tell your health care provider about them. Eating and drinking ? Take an oral rehydration solution (ORS). This is a drink that is sold at pharmacies and retail stores. ? Drink clear fluids slowly and in small amounts as you are able. Clear fluids include water, ice chips, low-calorie sports drinks, and fruit juice that has water added (diluted fruit juice). ? Eat bland, qifl-wo-qwfoow foods in small amounts as you are able. These foods include bananas, applesauce, rice, lean meats, toast, and crackers. ? Avoid drinking fluids that contain a lot of sugar or caffeine, such as energy drinks, sports drinks, and soda. ? Avoid alcohol. ? Avoid spicy or fatty foods. General instructions ? Take hihb-fmb-wwbwrxh and prescription medicines only as told by your health care provider. ? Rest at home while you recover. ? Drink enough fluid to keep your urine pale yellow. ? Breathe slowly and deeply when you feel nauseous. ? Avoid smelling things that have strong odors. ? Wash your hands often using soap and water for at least 20 seconds. If soap and water are not available, use hand mineral engineer. ? Make sure that everyone in your household washes their hands well and often. ? Keep all follow-up visits. This is important. Contact a health care provider if: ? Your nausea gets worse. ? Your nausea does not go away after two days. ? You vomit multiple times. ? You cannot drink fluids without vomiting. ? You have any of the following: ? New symptoms. ? A fever. ? A headache. ? Muscle cramps. ? A rash. ? Pain while urinating. ? You feel light-headed or dizzy. Get help right away if: ? You have pain in your chest, neck, arm, or jaw. ? You feel extremely weak or you faint. ? You have vomit that is bright red or looks like coffee grounds. ? You have bloody or black stools (feces) or stools that look like tar. ? You have a severe headache, a stiff neck, or both. ? You have severe pain, cramping, or bloating in your abdomen. ? You have difficulty breathing or are breathing very quickly. ? Your heart is beating very quickly. ? Your skin feels cold and clammy. ? You feel confused. ? You have signs of dehydration, such as: ? Dark urine, very little urine, or no urine. ? Cracked lips. ? Dry mouth. ? Sunken eyes. ? Sleepiness. ? Weakness. These symptoms may be an emergency. Get help right away. Call 911. ? Do not wait to see if the symptoms will go away. ? Do not drive yourself to the hospital. Summary ? Nausea is the feeling that you have an upset stomach or that you are about to vomit. Nausea on its own is not usually a serious concern, but it may be an early sign of a more serious medical problem. ? If vomiting develops, or if you are not able to drink enough fluids, you are at risk of becoming dehydrated. ? Follow recommendations for eating and drinking and take zmjl-gpc-hfmijdw and prescription medicinesonly as told by your health care provider. ? Contact a health care provider right away if your symptoms worsen or you have new symptoms. ? Keep all follow-up visits. This is important. This information is not intended to replace advice given to you by your health care provider. Make sure you discuss any questions you have with your health care provider. Document Revised: 04/11/2022 Document Reviewed: 04/11/2022 [employer] Patient Education ?? 2022 [employer] Tests Performed Radiology XR Chest 1 View 04/03/2024 18:05 EDT Medications and Immunizations Administered Given NS drip, 1000 mL, IV NS drip, 500 mL, Medication Bolus ondansetron, 4 mg, IV Push Lab Test Name Test Result Date/Time WBC 4.1 K/mcL 04/03/2024 16:11 EDT RBC 5.02 Million/mcL 04/03/2024 16:11 EDT Hgb 16.2 g/dL 04/03/2024 16:11 EDT Hct 45.5 % 04/03/2024 16:11 EDT MCV 90.6 fL 04/03/2024 16:11 EDT MCH 32.3 pg 04/03/2024 16:11 EDT MCHC 35.6 g/dL 04/03/2024 16:11 EDT RDW-CV 13.8 % 04/03/2024 16:11 EDT Platelets 82 K/mcL 04/03/2024 16:11 EDT MPV 7.4 fL 04/03/2024 16:11 EDT Neutro Auto 73.8 % 04/03/2024 16:11 EDT Lymph Auto 15.5 % 04/03/2024 16:11 EDT [place] Auto 9.7 % 04/03/2024 16:11 EDT Eos, Auto 0.10 % 04/03/2024 16:11 EDT Basophil Auto 0.9 % 04/03/2024 16:11 EDT Neutro Absolute 3.1 K/mcL 04/03/2024 16:11 EDT Lymph Absolute 0.6 K/mcL 04/03/2024 16:11 EDT [place] Absolute 0.4 K/mcL 04/03/2024 16:11 EDT Eos Absolute 0.0 K/mcL 04/03/2024 16:11 EDT Baso Absolute 0.0 K/mcL 04/03/2024 16:11 EDT RBC Morph Normal 04/03/2024 16:11 EDT Plt Estimation Decreased 04/03/2024 16:11 EDT Plt Large Few 04/03/2024 16:11 EDT Slide Review Morph Only 04/03/2024 16:11 EDT ESR, Westergren 30 mm/hr 04/03/2024 16:11 EDT Sodium Level 129 mmol/L 04/03/2024 16:11 EDT Potassium Level 4.1 mmol/L 04/03/2024 16:11 EDT Chloride Level 96 mmol/L 04/03/2024 16:11 EDT CO2 20 mmol/L 04/03/2024 16:11 EDT Alk Phos 48 IntlUnit/L 04/03/2024 16:11 EDT AST 76 IntlUnit/L 04/03/2024 16:11 EDT ALT 70 IntlUnit/L 04/03/2024 16:11 EDT BUN 24 mg/dL 04/03/2024 16:11 EDT Glucose Level 139 mg/dL 04/03/2024 16:11 EDT Creatinine Level 1.40 mg/dL 04/03/2024 16:11 EDT BUN/Creat Ratio 17.1 04/03/2024 16:11 EDT eGFR CKD-EPI 53 mL/min/1.73 m2 04/03/2024 16:11 EDT Calcium Level 8.9 mg/dL 04/03/2024 16:11 EDT Protein Total 7.2 g/dL 04/03/2024 16:11 EDT Albumin Level 4.0 g/dL 04/03/2024 16:11 EDT Globulin 3.2 g/dL 04/03/2024 16:11 EDT A/G Ratio 1.3 g/dL 04/03/2024 16:11 EDT Bilirubin Total 1.1 mg/dL 04/03/2024 16:11 EDT Anion Gap 13.0 04/03/2024 16:11 EDT Lipase Level 20 unit/L 04/03/2024 16:11 EDT Osmolality 265 mOsm/kg 04/03/2024 16:11 EDT Troponin-I HS 10 ng/L 04/03/2024 18:22 EDT Urine Srce Clean Catch 04/03/2024 17:45 EDT UA Color YELLOW. 04/03/2024 17:45 EDT UA Appear CLEAR. 04/03/2024 17:45 EDT UA Glucose NEGATIVE 04/03/2024 17:45 EDT UA Bili SMALL [place] 04/03/2024 17:45 EDT UA Ketones 15 04/03/2024 17:45 EDT UA Spec Grav >=1.030 04/03/2024 17:45 EDT UA Blood NEGATIVE 04/03/2024 17:45 EDT UA pH 5.50 04/03/2024 17:45 EDT UA Protein 30 04/03/2024 17:45 EDT UA Urobilinogen 0.2 04/03/2024 17:45 EDT UA Nitrite NEGATIVE 04/03/2024 17:45 EDT UA Leuk Est NEGATIVE 04/03/2024 17:45 EDT Adenovirus RespP-BFire Not Detected BF 04/03/2024 16:29 EDT Bordetella parapertussis RespP-BFire Not Detect-BioFire 04/03/2024 16:29 EDT Bordetella pertussis RespP-BFire Not Detect-BioFire 04/03/2024 16:29 EDT Chlamydophila pneumoniae RespP-BFire Not Detect-BioFire 04/03/2024 16:29 EDT Coronavirus 229E (Not COVID-19) RP-BFire Not Detect-BioFire 04/03/2024 16:29 EDT Coronavirus HKU1 (Not COVID-19) RP-BFire Not Detect-BioFire 04/03/2024 16:29 EDT Coronavirus NL63 (Not COVID-19) RP-BFire Not Detect-BioFire 04/03/2024 16:29 EDT Coronavirus OC43 (Not COVID-19) RP-BFire Not Detect-BioFire 04/03/2024 16:29 EDT SARS-CoV-2 (COVID-19) RP-BFire Not Detect-BioFire 04/03/2024 16:29 EDT Human Metapneumonovirus RespP-BFire Not Detect-BioFire 04/03/2024 16:29 EDT Human Rhinovirus/Enterovirus RespP-BFir Not Detect-BioFire 04/03/2024 16:29 EDT Influenza A RespP-BFire Not Detect-BioFire 04/03/2024 16:29 EDT Influenza B RespP-BFire Not Detect-BioFire 04/03/2024 16:29 EDT Mycomplasma pneumoniae RespP-BFire Not Detect-BioFire 04/03/2024 16:29 EDT Parainfluenza Virus 1 RespP-BFire Not Detect-BioFire 04/03/2024 16:29 EDT Parainfluenza Virus 2 RespP-BFire Not Detect-BioFire 04/03/2024 16:29 EDT Parainfluenza Virus 3 RespP-BFire Not Detect-BioFire 04/03/2024 16:29 EDT Parainfluenza Virus 4 RespP-BFire Not Detect-BioFire 04/03/2024 16:29 EDT Respiratory Syncytial Virus RespP-BFire Not Detect-BioFire 04/03/2024 16:29 EDT Employed in healthcare? Unknown 04/03/2024 16:29 EDT Symptomatic as defined by CDC? Unknown 04/03/2024 16:29 EDT Hospitalized due to COVID-19? Unknown 04/03/2024 16:29 EDT In ICU? Unknown 04/03/2024 16:29 EDT Group care resident? Unknown 04/03/2024 16:29 EDT status? Unknown 04/03/2024 16:29 EDT Patient/Parts Counterman Signature Patient Name:MIREYA GILL I have received this information and my questions have been answered. Patient/Parts Counterman Name: Patient/Parts Counterman Signature: Relationship to Patient: Witness Name/Signature: Date: Electronically Signed on: 04/03/2024 19:48 EDTSigned by: Patient Care team information Care Team Personnel Name: BOZENA ELISE Position: No Access Member Role: Primary Care Physician Address: Address: [address] Care Team Related Persons Name: LOWELL GOODEN Address: Home [address] [place] [address] [phone] [facility]
[2024-04-12 13:43] VITALS: BP 114/72; PULSE 78
== END 2024-04-17 23:59 | disposition home or self-care (01) ==
LOC: CR 13:33
PROVIDERS: PCP Internal Medicine; Visit Provider Internal Medicine Cardiovascular Disease
DX: R69 Illness, unspecified (principal)

== ENCOUNTER 2024-06-16 12:55 | Outpatient (RCR) | payer SELFPAY ==
[2024-05-24 13:54] VITALS: BP 111/67; PULSE 86
[2024-05-26 13:17] VITALS: BP 110/66; PULSE 88
[2024-05-31 13:03] VITALS: BP 125/69; PULSE 75
[2024-06-09 13:06] VITALS: BP 127/70; PULSE 74
[2024-06-14 13:23] VITALS: BP 108/72; PULSE 71
[2024-06-16 13:06] VITALS: BP 118/61; PULSE 74
== END 2024-06-18 23:59 | disposition home or self-care (01) ==
LOC: CR 12:55
PROVIDERS: PCP Internal Medicine; Visit Provider Internal Medicine Cardiovascular Disease
DX: R69 Illness, unspecified (principal)

== ENCOUNTER 2024-07-14 13:00 | Outpatient (RCR) | payer SELFPAY ==
[2024-06-19 00:18] VITALS: BP 118/61; PULSE 74
[2024-06-21 13:12] VITALS: BP 109/68; PULSE 75
[2024-06-23 13:10] VITALS: BP 111/65; PULSE 72; O2SAT 92
[2024-06-28 13:33] VITALS: BP 118/69; PULSE 67
[2024-06-30 13:14] VITALS: BP 114/72; PULSE 72
[2024-07-05 13:15] VITALS: BP 111/68; PULSE 70
[2024-07-12 13:31] VITALS: BP 113/65; PULSE 72
[2024-07-14 13:00] VITALS: BP 121/70; PULSE 69
== END 2024-07-18 23:59 | disposition home or self-care (01) ==
LOC: CR 13:00
PROVIDERS: PCP Internal Medicine; Visit Provider Internal Medicine Cardiovascular Disease
DX: R69 Illness, unspecified (principal)

== ENCOUNTER 2024-08-11 12:52 | Outpatient (RCR) | payer SELFPAY ==
[2024-07-19 14:37] VITALS: BP 125/65; PULSE 72
[2024-07-26 14:52] VITALS: BP 120/69; PULSE 69
[2024-07-28 13:19] VITALS: BP 122/69; PULSE 65
[2024-08-09 13:34] VITALS: BP 122/67; PULSE 86
[2024-08-11 12:53] VITALS: BP 107/67; PULSE 81
== END 2024-08-18 23:59 | disposition home or self-care (01) ==
LOC: CR 12:52
PROVIDERS: PCP Internal Medicine; Visit Provider Internal Medicine Cardiovascular Disease
DX: R69 Illness, unspecified (principal)

== ENCOUNTER 2024-09-08 12:59 | Outpatient (RCR) | payer SELFPAY ==
[2024-08-19 00:16] VITALS: BP 107/67; PULSE 81
[2024-08-25 13:07] VITALS: BP 126/71; PULSE 68
[2024-08-30 13:05] VITALS: BP 116/74; PULSE 86
[2024-09-01 13:03] VITALS: BP 128/69; PULSE 65
[2024-09-08 12:59] VITALS: BP 113/72; PULSE 72; O2SAT 95
== END 2024-09-17 23:59 | disposition home or self-care (01) ==
LOC: CR 12:59
PROVIDERS: PCP Internal Medicine; Visit Provider Internal Medicine Cardiovascular Disease
DX: R69 Illness, unspecified (principal)

== ENCOUNTER 2024-10-18 14:07 | Outpatient (RCR) | payer SELFPAY ==
[2024-09-18 00:07] VITALS: BP 107/67; PULSE 81
[2024-09-20 13:37] VITALS: BP 126/74; PULSE 70
[2024-10-18 13:24] VITALS: BP 117/72; PULSE 66
== END 2024-10-18 23:59 | disposition home or self-care (01) ==
LOC: CR 14:07
PROVIDERS: PCP Internal Medicine; Visit Provider Internal Medicine Cardiovascular Disease
DX: R69 Illness, unspecified (principal)

== ENCOUNTER 2024-11-10 12:58 | Outpatient (RCR) | payer SELFPAY ==
[2024-10-19 00:06] VITALS: BP 107/67; PULSE 81
[2024-10-25 13:02] VITALS: BP 130/71; PULSE 72
[2024-11-03 13:00] VITALS: BP 130/71; PULSE 67; O2SAT 94
[2024-11-10 13:00] VITALS: BP 133/80; PULSE 66
== END 2024-11-18 23:59 | disposition home or self-care (01) ==
LOC: CR 12:58
PROVIDERS: PCP Internal Medicine; Visit Provider Internal Medicine Cardiovascular Disease
DX: R69 Illness, unspecified (principal)

== ENCOUNTER 2024-12-08 13:00 | Outpatient (RCR) | payer SELFPAY ==
[2024-11-22 13:46] VITALS: BP 111/64; PULSE 83
[2024-12-08 13:18] VITALS: BP 126/75; PULSE 65
== END 2024-12-16 23:59 | disposition home or self-care (01) ==
LOC: CR 13:00
PROVIDERS: PCP Internal Medicine; Visit Provider Internal Medicine Cardiovascular Disease
DX: R69 Illness, unspecified (principal)

== ENCOUNTER 2025-01-12 13:01 | Outpatient (RCR) | payer SELFPAY ==
[2024-12-17 00:21] VITALS: BP 126/75; PULSE 65
[2024-12-20 13:00] VITALS: BP 124/72; PULSE 75
[2024-12-22 13:38] VITALS: BP 117/69; PULSE 74
[2024-12-27 13:46] VITALS: BP 114/65; PULSE 76
[2024-12-29 13:29] VITALS: BP 134/72; PULSE 67
[2025-01-03 14:10] VITALS: BP 116/69; PULSE 69
[2025-01-10 14:22] VITALS: BP 129/68; PULSE 65
[2025-01-12 13:07] VITALS: BP 118/64; PULSE 70
== END 2025-01-16 23:59 | disposition home or self-care (01) ==
LOC: CR 13:01
PROVIDERS: PCP Internal Medicine; Visit Provider Internal Medicine Cardiovascular Disease
DX: R69 Illness, unspecified (principal)

== ENCOUNTER 2025-02-14 13:09 | Outpatient (RCR) | payer SELFPAY ==
[2025-01-17 00:09] VITALS: BP 126/75; PULSE 65
[2025-01-17 13:12] VITALS: BP 120/72; PULSE 73
[2025-01-24 14:38] VITALS: BP 131/74; PULSE 72
[2025-01-26 13:00] VITALS: BP 122/65; PULSE 76; O2SAT 92
[2025-01-31 13:44] VITALS: BP 118/70; PULSE 71
[2025-02-02 14:08] VITALS: BP 120/70; PULSE 71
[2025-02-07 14:33] VITALS: BP 122/75; PULSE 75
[2025-02-09 13:25] VITALS: BP 121/67; PULSE 72
[2025-02-14 13:15] VITALS: BP 116/62; PULSE 83
== END 2025-02-15 23:59 | disposition home or self-care (01) ==
LOC: CR 13:09
PROVIDERS: PCP Internal Medicine; Visit Provider Internal Medicine Cardiovascular Disease
DX: R69 Illness, unspecified (principal)

== ENCOUNTER 2025-03-16 13:47 | Outpatient (RCR) | payer SELFPAY ==
[2025-02-16 00:18] VITALS: BP 126/75; PULSE 65
[2025-02-16 13:10] VITALS: BP 113/70; PULSE 75
[2025-02-21 13:33] VITALS: BP 122/71; PULSE 75
[2025-02-23 13:16] VITALS: BP 121/68; PULSE 69
[2025-02-28 13:16] VITALS: BP 115/73; PULSE 70
[2025-03-07 14:23] VITALS: BP 120/69; PULSE 70
[2025-03-09 13:29] VITALS: BP 118/69; PULSE 73
[2025-03-14 14:08] VITALS: BP 134/79; PULSE 81
[2025-03-16 13:51] VITALS: BP 125/73; PULSE 76
== END 2025-03-18 23:59 | disposition home or self-care (01) ==
LOC: CR 13:47
PROVIDERS: PCP Internal Medicine; Visit Provider Internal Medicine Cardiovascular Disease
DX: R69 Illness, unspecified (principal)

== ENCOUNTER 2025-04-06 13:00 | Outpatient (RCR) | payer SELFPAY ==
[2025-03-19 00:22] VITALS: BP 126/75; PULSE 65
[2025-03-21 13:11] VITALS: BP 121/71; PULSE 74
[2025-03-28 14:32] VITALS: BP 124/69; PULSE 64
[2025-04-04 13:17] VITALS: BP 120/71; PULSE 65
[2025-04-06 13:44] VITALS: BP 120/71; PULSE 74
== END 2025-04-17 23:59 | disposition home or self-care (01) ==
LOC: CR 13:00
PROVIDERS: PCP Internal Medicine; Visit Provider Internal Medicine Cardiovascular Disease
DX: R69 Illness, unspecified (principal)

== ENCOUNTER 2025-05-11 13:00 | Outpatient (RCR) | payer SELFPAY ==
[2025-04-18 13:09] VITALS: BP 123/68; PULSE 64
[2025-04-20 12:54] VITALS: BP 122/66; PULSE 66; O2SAT 90
[2025-04-25 13:43] VITALS: BP 121/68; PULSE 66
[2025-04-27 13:18] VITALS: BP 119/71; PULSE 67
[2025-05-09 14:10] VITALS: BP 121/68; PULSE 71
[2025-05-11 13:17] VITALS: BP 110/64; PULSE 64
== END 2025-05-18 23:59 | disposition home or self-care (01) ==
LOC: CR 13:00
PROVIDERS: PCP Internal Medicine; Visit Provider Internal Medicine Cardiovascular Disease
DX: R69 Illness, unspecified (principal)

== ENCOUNTER 2025-06-08 13:00 | Outpatient (RCR) | payer SELFPAY ==
[2025-05-19 00:12] VITALS: BP 110/64; PULSE 64
[2025-05-23 13:45] VITALS: BP 120/70; PULSE 68
[2025-05-25 13:46] VITALS: BP 121/71; PULSE 67
[2025-05-30 13:00] VITALS: BP 106/66; PULSE 69
[2025-06-01 13:38] VITALS: BP 112/65; PULSE 73
[2025-06-06 13:22] VITALS: BP 122/70; PULSE 68
[2025-06-08 13:09] VITALS: BP 120/71; PULSE 75
== END 2025-06-18 23:59 | disposition home or self-care (01) ==
LOC: CR 13:00
PROVIDERS: PCP Internal Medicine; Visit Provider Internal Medicine Cardiovascular Disease
DX: R69 Illness, unspecified (principal)

== ENCOUNTER 2025-07-13 13:00 | Outpatient (RCR) | payer SELFPAY ==
[2025-06-27 13:22] VITALS: BP 118/66; PULSE 66
[2025-06-29 14:15] VITALS: BP 113/72; PULSE 65
[2025-07-11 14:35] VITALS: BP 112/63; PULSE 67
[2025-07-13 13:20] VITALS: BP 138/74; PULSE 64
== END 2025-07-18 23:59 | disposition home or self-care (01) ==
LOC: CR 13:00
PROVIDERS: PCP Internal Medicine; Visit Provider Internal Medicine Cardiovascular Disease
DX: R69 Illness, unspecified (principal)

== ENCOUNTER 2025-08-15 13:00 | Outpatient (RCR) | payer SELFPAY ==
[2025-07-19 00:22] VITALS: BP 138/74; PULSE 64
[2025-07-20 13:15] VITALS: BP 122/68; PULSE 71
[2025-07-25 14:00] VITALS: BP 117/68; PULSE 71
[2025-08-01 13:27] VITALS: BP 121/64; PULSE 67
[2025-08-08 13:10] VITALS: BP 124/70; PULSE 60
[2025-08-10 13:30] VITALS: BP 127/78; PULSE 74
[2025-08-11 12:53] VITALS: BP 127/78; PULSE 74
[2025-08-15 13:20] VITALS: BP 117/67; PULSE 63
== END 2025-08-18 23:59 | disposition home or self-care (01) ==
LOC: CR 13:00
PROVIDERS: PCP Internal Medicine; Visit Provider Internal Medicine Cardiovascular Disease
DX: R69 Illness, unspecified (principal)

== ENCOUNTER 2025-09-12 13:00 | Outpatient (RCR) | payer SELFPAY ==
[2025-08-19 00:10] VITALS: BP 117/67; PULSE 63
[2025-08-31 13:27] VITALS: BP 119/66; PULSE 64
[2025-09-05 13:19] VITALS: BP 121/64; PULSE 68
[2025-09-12 13:18] VITALS: BP 133/71; PULSE 63
== END 2025-09-17 23:59 | disposition home or self-care (01) ==
LOC: CR 13:00
PROVIDERS: PCP Internal Medicine; Visit Provider Internal Medicine Cardiovascular Disease
DX: R69 Illness, unspecified (principal)

== ENCOUNTER 2025-10-17 13:00 | Outpatient (RCR) | payer SELFPAY ==
[2025-09-18 00:07] VITALS: BP 133/71; PULSE 63
[2025-09-21 13:31] VITALS: BP 124/71; PULSE 63
[2025-10-10 13:37] VITALS: BP 122/67; PULSE 56
[2025-10-17 13:21] VITALS: BP 122/72; PULSE 68
== END 2025-10-18 23:59 | disposition home or self-care (01) ==
LOC: CR 13:00
PROVIDERS: PCP Internal Medicine; Visit Provider Internal Medicine Cardiovascular Disease
DX: R69 Illness, unspecified (principal)